=== PATIENT | male | born 1945 | race Caucasian/White ===

== ENCOUNTER → 2016-05-23 | Outpatient (CLI) | payer OTHER ==
[~2016-05-23] VITALS: Ht 180.3 cm; Wt 93.0 kg
[~2016-05-23] MED LIST: ASA5UEC PO; ASPIRIN325 PO; COLACE100 MG PO; FISH OIL 1,2001 EAC4 PO; FOLIC ACID0.8 MG PO; GLUCOSAMINE &1 EAC1 PO; HYDROCHLOROTHIA25 M1 PO; HYDROCODON-ACE1 EAC7 PO; METROGEL55 GM TRANSDERM; MOVANA300 MG PO; NIASPAN ER 101000 M1 PO; SUMYCIN 500500 MG PO; TAMSULOSIN HCL0.4 M1 PO; TETRACYCLINE H250 MG PO; VITAMIN B-1000 MCG/2 PO; VITAMIN D1000 UNI1 PO; VITAMINC500 PO; WELCHOL 625 MG625 MG PO; ZETIA10 MG PO
--- NOTE | ~2016-05-23 | P ---
[facility] [address] PROCEDURE REPORT Name: MIRACLE COELHO Room #: REG [facility]#: [id number] Admission: 05/23/16 Attend Phys: Jason Delvalle Discharge: Date of : 41 Report #: [id number] THIS REPORT FOR: //name// CC: Jason Corrigan MD DATE OF SERVICE: 05/23/2016 PROCEDURE PERFORMED: Colonoscopy with biopsies. HISTORY OF PRESENT ILLNESS: The patient is a 71-year-old male with a history of colon polyps and a family history of colon cancer in his brother. Last colonoscopy was performed in 2011, polyps were removed which were benign. He is here for a 5-year followup. He denies any symptoms. DESCRIPTION OF PROCEDURE: The risks and benefits of the procedure were explained to the patient, those risks including but not limited to bleeding, perforation and the risk of sedation. He understood these risks and gave informed consent. Sedation was given using propofol per anesthesia. Next, a digital rectal exam was initially performed, which was normal. Next, using a standard Viewstern colonoscope, the scope was placed in the patient's anus and advanced under direct vision to the cecum. The overall prep was good. The cecum and ileocecal valve were normal in appearance. The ascending, transverse, descending and sigmoid colon were all normal. In the rectum, there was a 3-mm sessile polyp. This was removed with cold forceps, otherwise normal. On retroflexion, no abnormalities were noted. The scope was then withdrawn and the procedure terminated. The patient tolerated the procedure well. IMPRESSION: 1. Small rectal polyp. 2. Otherwise, normal colonoscopy. RECOMMENDATIONS: 1. Await biopsy results. 2. Repeat colonoscopy in 5 years. Thank you for allowing me to participate in his care. <ELECTRONICALLY SIGNED> By: Jason Russell MD 05/24/16 1341 [id number] Jason Russell MD /nt
--- NOTE | ~2016-05-23 | S ---
[facility] [place] [address] SURGICAL PATH RPT PROCEDURE Name: JAYDEN COELHO Elisabet Room #: REG [facility] Josse.#: [id number] Admission: 05/23/16 Date of : 41 Discharge: Report #: [id number] Path Case #: [id number] PATHOLOGY REPORT COLLECTION DATE: 05/23/2016 RECEIVED DATE: 05/23/2016 SUBMITTING PHYS: Dr. Jason Russell OTHER PHYS: SPECIMEN(S) RECEIVED: A.Rectal polyp * * * * * * * * * * * * FINAL DIAGNOSIS: A. Polyp, rectal polyp, endoscopic biopsy: - Tubular adenoma. - Negative for high grade dysplasia. (IUV; 05/25/16) PATHOLOGIST: Elana Alatorre M.D. REPORT ELECTRONICALLY SIGNED BY: Elana Alatorre M.D. DATE/TIME: 05/25/2016 13:42 * * * * * * * * * * * * GROSS PATHOLOGY: Received in formalin labeled "[place], rectal polyp," are 2 segments of nur soft tissue measuring 0.3 cm in aggregate dimensions and ranging from 0.1 to 0.2 cm in maximum dimension. The specimen is submitted entirely in cassette A1. (SNA; 05/24/2016) CLINICAL HISTORY: History of colon polyps, family history of colon cancer, colon polyps INITIAL CPT CODE(S): A; 01948 Professional services performed by [facility] at [facility] [address], [place] [address] Technical services performed by [facility] at [address] [place] [address], [address] [address]. [facility] [address] [place] [address] SURGICAL PATH RPT PROCEDURE Name: JAYDEN COELHO Room #: REG [facility] Loaiza.#: [id number] Admission: 05/23/16 Date of : 41 Discharge: Report #: [id number] Path Case #: [id number] [address] PHONE: [phone] DIRECTOR: Scout Dennison M.D. * * * END OF REPORT * * *
== END | disposition home or self-care (01) ==
LOC: GI 08:04
DX: K62.1 Rectal polyp (principal); I10 Essential (primary) hypertension; E78.00 Pure hypercholesterolemia, unspecified; G47.33 Obstructive sleep apnea (adult) (pediatric); Z87.891 Personal history of nicotine dependence; Z80.0 Family history of malignant neoplasm of digestive organs; Z98.42 Cataract extraction status, left eye; Z98.41 Cataract extraction status, right eye; Z96.1 Presence of intraocular lens
CPT/HCPCS: 62110; 62900

== ENCOUNTER → 2018-10-22 | Outpatient (CLI) | payer OTHER | LOC: CAT 10:08 | DX: Z13.6 Encounter for screening for cardiovascular disorders (principal); E78.00 Pure hypercholesterolemia, unspecified; I25.10 Atherosclerotic heart disease of native coronary artery without angina pectoris ==

== ENCOUNTER → 2019-05-13 | Outpatient (CLI) | payer OTHER ==
[~2019-05-13] MED LIST changes: +ROSUVASTATIN CA20 MG PO
== END ==
LOC: SJCVC 13:52
PROVIDERS: ATTEND Internal Medicine
DX: I25.10 Atherosclerotic heart disease of native coronary artery without angina pectoris (principal); R93.1 Abnormal findings on diagnostic imaging of heart and coronary circulation; I10 Essential (primary) hypertension; E78.5 Hyperlipidemia, unspecified; J44.9 Chronic obstructive pulmonary disease, unspecified; Z90.49 Acquired absence of other specified parts of digestive tract; Z79.899 Other long term (current) drug therapy; Z87.891 Personal history of nicotine dependence

== ENCOUNTER → 2019-05-22 | Outpatient (CLI) | payer OTHER ==
[~2019-05-22] MED LIST changes: -ROSUVASTATIN CA20 MG PO
== END ==
LOC: SJCVCIMAG 08:19
DX: I07.1 Rheumatic tricuspid insufficiency (principal); I25.10 Atherosclerotic heart disease of native coronary artery without angina pectoris; R93.1 Abnormal findings on diagnostic imaging of heart and coronary circulation; I10 Essential (primary) hypertension; E78.2 Mixed hyperlipidemia; F41.9 Anxiety disorder, unspecified; Z87.891 Personal history of nicotine dependence; Z79.82 Long term (current) use of aspirin; Z79.899 Other long term (current) drug therapy; Z88.8 Allergy status to other drugs, medicaments and biological substances

== ENCOUNTER → 2019-05-29 | Outpatient (CLI) | payer OTHER ==
[~2019-05-29] VITALS: Ht 172.7 cm; Wt 100.0 kg
[~2019-05-29] MED LIST changes: +ROSUVASTATIN CA20 MG PO
[2019-05-29 09:50] VITALS: BP 149/78
[2019-05-29 10:32] LABS: HEMATOCRIT 43.6 % (42.0-52.0); MCHC 34.3 g/dL (28.0-37.0); MCV 90.3 fL (80.0-100.0); RBC 4.83 mil/uL (4.50-6.00); RDW 13.7 % (10.5-14.5); WBC 8.4 thou/uL (4.0-11.0)
[2019-05-29 10:44] LABS: CALCIUM 9.3 mg/dL (8.5-10.1); POTASSIUM 3.7 mmol/L (3.5-5.1)
--- NOTE | 2019-05-29 14:32 | NUR ---
DR NESBITT TO DISCUSS CASE WITH PT.
--- NOTE | 2019-06-05 13:34 | CATHLAB ---
[facility] [place] [address] INVASIVE PROCEDURE REPORT Name: MIRACLE COELHO Room #: REG [facility] Angelina#: [id number] Admission: 05/29/19 Attend Phys: Gabo Trejo Discharge: Date of : 41 Report #: [id number] THIS REPORT FOR: cc: Blake Corrigan MD, Rene P. MD Lammoglia, Francisco J. MD ~ APPROVED REPORT Study performed: 05/29/2019 11:01:41 Patient Details Patient Status: Out-Patient Room #: The patient is a 74 year-old male Event Personnel Gabo Trejo Geological Engineering Teacher, Rashmi Cotter RTR, HAND PACKAGER Monitor, Natalya Jimenez RN RN, Cecilio Ryan RTR Scrub Procedures Performed Art Access - R femoral artery* Left Heart Cath w/or w/o Coronaries [id number] [facility] [address] Initial Mod Sed Same Phys/QHP Gr 167270 Hemostasis with Manual pressure 26094 Mod Sed Same Phys/QHP Ea 226693, supervision of conscious sedation Indication Positive stress test Procedure Narrative The Right Groin^ was infiltrated with 1% Lidocaine subcutaneous anesthesia. A PINNACLE 4FR Sheath #[id number] sheath was inserted into the RFA^. Coronary angiography was performed using coronary diagnostic catheters. The right coronary system was accessed and visualized with a JR4 catheter. The left coronary system was accessed and visualized with a JL4 catheter. The left ventricle was accessed and visualized with a JR4 catheter. Left ventricular/Aortic Valve gradient assessed via catheter pullback. Hemostasis was obtained with manual pressure following sheath removal without any complications. The patient tolerated the procedure well and there were no complications associated with the procedure. There was no hematoma. Intraoperative Conscious Sedation Sedation start time: 11:29 Case end Time: [facility] [address] [place] [address] INVASIVE PROCEDURE REPORT Name: MIRACLE COELHO Room #: REG [facility]#: [id number] Admission: 05/29/19 Attend Phys: Gabo Marti Discharge: Date of : 41 Report #: [id number] 12:05 Versed 3 mg Fluoro Time: 4.10 minutes Dose: DAP 6618.00 cGycm2 1185 mGy Contrast Type and Amount: Omnipaque 60 ml Coronary Angiography The patient's coronary anatomy is right dominant. Diagnostic Cath Left Main Left main is of normal origin and moderate caliber bifurcates that into ascending the circumflex. It is free of high-grade disease of some proximal tapering noted. No significant stenosis LAD Moderate caliber type II vessel which in its proximal portion is an eccentric calcified lesion of under 50%. The vessel continues on in the anterior interventricular sulcus giving rise to septal and diagonal branches. Mild luminal irregularities are noted remaining of the vessel Diagonal 1 Small caliber vessel without significant high-grade disease Diagonal 2 Diminutive caliber vessel Circumflex Large-caliber vessel which proximally bifurcates into the circumflex proper and a marginal branch system. There appears to be a tapering of about 30-40% prior to this bifurcation it then continues on posteriorly to give rise to diminutive size vessels with diffuse irregularities are noted OM1 Moderate caliber vessel which has an early bifurcation small caliber. High-grade disease there is a 30-40% proximal lesion in the OM proper is a course normal aspect of the heart Right Coronary Multiple moderate caliber vessel normal origin courses in the groove with luminal irregularities for this and portion of approximately 50% stenosis in the proximal RCA which is not flow-limiting. The vessel then continues on to the crux of the heart giving rise and terminating as a posterior descending artery without high-grade lesion but with luminal irregularities R PDA Moderate caliber vessel with irregularities with no high-grade lesions Left Ventriculography Left Ventriculography was not performed. Hemodynamics The aortic pressure is 128/69 mmHg with a mean of 85 mmHg. The left ventricular pressure is 107/14 mmHg with a mean of mmHg. The left [facility] [address] [place] [address] INVASIVE PROCEDURE REPORT Name: MIRACLE COELHO [facility] [id number] Admission: 05/29/19 Attend Phys: Gabo Marti Discharge: Date of : 41 Report #: [id number] ventricular end diastolic pressure is 29 mmHg. Conclusion 1. Coronary disease moderate multivessel nonflow limiting 2. Normal hemodynamics Recommendations Cardiac Risk Reduction Program Aggressive Medical Therapy <ELECTRONICALLY SIGNED> By: Gabo Trejo MD 06/05/191332 32 32 Gabo Trejo MD /INF
== END | disposition home or self-care (01) ==
LOC: CATH 08:07
PROVIDERS: Internal Medicine
DX: R94.39 Abnormal result of other cardiovascular function study (principal); I25.10 Atherosclerotic heart disease of native coronary artery without angina pectoris; I10 Essential (primary) hypertension; E78.00 Pure hypercholesterolemia, unspecified; N40.0 Benign prostatic hyperplasia without lower urinary tract symptoms; Z98.890 Other specified postprocedural states; Z79.899 Other long term (current) drug therapy; Z98.41 Cataract extraction status, right eye; Z98.42 Cataract extraction status, left eye; Z90.49 Acquired absence of other specified parts of digestive tract; Z82.49 Family history of ischemic heart disease and other diseases of the circulatory system; Z96.1 Presence of intraocular lens; Z79.82 Long term (current) use of aspirin